=== PATIENT | female | born 1990 | race Caucasian/White ===

== ENCOUNTER → 2020-04-23 | Outpatient (CLI) | payer OTHER ==
[~2020-04-23] MED LIST: COLACE 100MG C100 MG PO; FLONASE 0.05% N16 GM; HYDROCODONE-AC1 EACH PO; IBUPROFEN600 MG PO; KLONOPIN TAB 00.5 MG PO; ONE A DAY WOME EAC PO; PAROXETINE HCL10 MG PO
[2020-04-23 09:13] LABS: RED BLOOD COUNT 4.51 M/UL (4.00-5.10); WHITE BLOOD COUNT 7.1 K/UL (4.5-11.0)
== END ==
LOC: OPSV2 08:00
PROVIDERS: Obstetrics & Gynecology
DX: Z01.812 Encounter for preprocedural laboratory examination (principal); R10.2 Pelvic and perineal pain; N94.10 Unspecified dyspareunia
CPT/HCPCS: 36415; 81001; 85025

== ENCOUNTER → 2020-05-03 | Day surgery (SDC) | payer OTHER ==
[~2020-05-03] VITALS: Ht 160 cm; Wt 57.6 kg
== END | disposition home or self-care (01) ==
LOC: OR 07:30
PROVIDERS: Obstetrics & Gynecology
PROC: 0JB80ZZ Excision of Abdomen Subcutaneous Tissue and Fascia, Open Approach (ICD-10-PCS; 2020-05-03)
PROC: 0DN84ZZ Release Small Intestine, Percutaneous Endoscopic Approach (ICD-10-PCS; principal; 2020-05-03 08:00)
DX: K66.0 Peritoneal adhesions (postprocedural) (postinfection) (principal); R22.2 Localized swelling, mass and lump, trunk; F41.0 Panic disorder [episodic paroxysmal anxiety]; I49.9 Cardiac arrhythmia, unspecified; F17.210 Nicotine dependence, cigarettes, uncomplicated; K21.9 Gastro-esophageal reflux disease without esophagitis; G25.81 Restless legs syndrome; F32.9 Major depressive disorder, single episode, unspecified; F43.10 Post-traumatic stress disorder, unspecified; Z88.8 Allergy status to other drugs, medicaments and biological substances; Z88.5 Allergy status to narcotic agent; Z20.822 Contact with and (suspected) exposure to COVID-19; Z79.899 Other long term (current) drug therapy
CPT/HCPCS: 84703; J2001; J2250; J2405; J2550; J2704; J2795; J3010; J7120